=== PATIENT | female | born 2000 | race Caucasian/White ===

== ENCOUNTER 2020-08-08 16:45 | Outpatient (REF) | payer OTHER, SELFPAY | END 2020-08-08 16:46 | disposition home or self-care (01) | LOC: HO.LAB 16:45 | PROVIDERS: Visit Provider Internal Medicine | DX: Z20.828 Contact with and (suspected) exposure to other viral communicable diseases (principal) | CPT/HCPCS: C9803; U0003 ==

== ENCOUNTER 2020-08-13 17:05 | Outpatient (REF) | payer OTHER, SELFPAY | END 2020-08-13 17:06 | disposition home or self-care (01) | LOC: HO.LAB 17:05 | PROVIDERS: Visit Provider Internal Medicine | DX: Z20.822 Contact with and (suspected) exposure to COVID-19 (principal) | CPT/HCPCS: 36415; C9803; U0003 ==

== ENCOUNTER 2023-04-03 11:03 | Outpatient (REF) | payer MEDICAID, SELFPAY ==
[2023-04-03 18:52] LABS: CT PCR NOT DETECTED (Not Detect.); NG PCR NOT DETECTED (Not Detect.)
[2023-04-04 04:10] LABS: Syphilis Screen Nonreactive (Nonreactive)
[2023-04-04 04:31] LABS: HIV AB/AG Nonreactive (Nonreactive); HIV Num 1 0.07 S/CO (0.00-0.99); ~HepC Num1 0.09 S/CO (0.00-0.79); ~Hepatitis C Antibody Nonreactive (Nonreactive)
== END 2023-04-03 11:04 | disposition home or self-care (01) ==
LOC: HO.HHCL 11:03
PROVIDERS: Visit Provider General Practice
DX: Z13.89 Encounter for screening for other disorder (principal)
CPT/HCPCS: 0353U; 86780; 86803; 87389

== ENCOUNTER 2024-05-04 15:04 | Outpatient (REF) | payer MEDICAID, SELFPAY ==
[2024-05-04 16:24] LABS: MANUAL DIFF FLAG NO
[2024-05-04 16:28] LABS: Hematocrit 42.8 % (37.0-47.0); Hemoglobin 14.2 g/dl (12.0-16.0); Mean Corpuscular Hemoglobin 32.7 pg (27.0-33.0); Mean Corpuscular Volume 98.6 fL (80.0-98.0); Red Blood Count 4.34 X10*6/uL (4.20-5.50); White Blood Count 6.7 X10*3/uL (4.8-10.8)
[2024-05-04 16:29] LABS: Basophils Percent Auto 0.4 % (0-2); Eosinophils Absolute Auto 0.1 X10*3/uL (0.0-0.4); Eosinophils Percent Auto 1.9 % (0-4); Imm Gran Abs Auto 0.02 X10*3/uL (0.00-0.03); Imm Gran Pct Auto 0.3 % (0.0-0.4); Lymphocytes Absolute Auto 2.1 X10*3/uL (1.2-4.9); Lymphocytes Percent Auto 31.5 % (20-40); Mean Corpuscular HGB Conc 33.2 g/dl (31.0-35.0); Mean Platelet Volume 10.1 fL (9.4-12.3); Monocytes Absolute Auto 0.5 X10*3/uL (0.1-1.2); Neutrophils Absolute Auto 3.9 x10*3/uL (2.0-8.3); Neutrophils Percent Auto 58.9 % (45-73); Platelet Count 232 X10*3/uL (160-400); Red Cell Distribution Width 12.8 % (11.0-16.0)
[2024-05-04 17:09] LABS: TSH reflex Free T4 1.13 uIU/mL (0.32-4.0)
== END 2024-05-04 15:05 | disposition home or self-care (01) ==
LOC: HO.HHCL 15:04
PROVIDERS: Visit Provider General Practice
DX: R40.0 Somnolence (principal)
CPT/HCPCS: 36415; 84443; 85025

== ENCOUNTER 2025-03-13 11:43 | Outpatient (REF) | payer MEDICAID, SELFPAY ==
--- OUTSIDE RECORDS SUMMARY | 2025-03-13 12:31 | XMS_ITS | Clinical Summary ---
Author Organization [facility] Address [address] [place] [phone] Phone Care Team Providers Care Hide Mill Man Name Role Phone Arthur CityGladis boston YOLY Primary Care Provider [phone] Immunizations Immunization Administration Dates Next Due DTaP 5 12/19/2004, 1,05/19/2000,02/13/2000 ,1999 H1N1 06/22/2009 Hep B, ped/adol 08/07/2000,1999,1999 Hib (PRP-T) 03/29/2001,05/19/2000,02/13/2000 ,1999 IPV 12/19/2004,05/19/2000,02/13/2000 ,1999 Influenza, injectable, trivalent 06/09/2008 MMR 01/05/2004,10/30/2000 Pneumococcal Conjugate 10/30/2000,08/07/2000,05/2000 Varicella 06/09/2008,10/30/2000 Social History Tobacco Use Types Packs/Day Years Used Date Smoking Tobacco: Never Assessed Comments Unknown Sex and Gender Information Value Date Recorded Sex Assigned at Not on file Legal Sex Female 4:42 PM EDT Gender Identity Not on file Sexual Orientation Not on file Plan of Treatment Health Maintenance Due Date Last Done Comments DTaP,Tdap,and Td Vaccines (6 - Tdap) 10/07/2010 12/19/2004, 03/29/2001, 05/19/2000, Additional history exists HPV Vaccines (1 - 3-dose series) 10/07/2014 COVID-19 Vaccine ( season) 2024 Influenza Vaccines (#1) 2025 06/09/2008 Hepatitis B Vaccines Completed 08/07/2000, 1999, 1999 Pneumococcal Vaccine Completed 10/30/2000, 08/07/2000, 05/19/2000 HIB Vaccines Completed 03/29/2001, 05/10, 02/13/2000, Additional history exists MMR Vaccines Completed 01/05/2004, 10/30/2000 IPV Vaccines Completed 12/19/2004, 05/10, 02/13/2000, Additional history exists Varicella Vaccines Completed 06/09/2008, 10/30/2000 Hepatitis A Vaccines Aged Out No long er eligible based on patient's age to complete this topic Men B Vaccine Aged Out No longer elig ible based on patient's age to complete this topic Meningococcal Vaccine Aged Out No ivelisse jenna eligible based on patient's age to complete this topic Care Teams Hide Mill Man Relationship Specialty Start Date End Date Gladis Pitts NP PCP - General 03/20/17
[2025-03-13 13:44] LABS: Hematocrit 39.7 % (37.0-47.0); Hemoglobin 13.0 g/dl (12.0-16.0); Mean Corpuscular HGB Conc 32.7 g/dl (31.0-35.0); Mean Corpuscular Hemoglobin 32.1 pg (27.0-33.0); Mean Corpuscular Volume 98.0 fL (80.0-98.0); NRBC Abs Auto 0.000 X10*3/uL (0.0-0.012); NRBC Pct Auto 0.0 /100WBC (0.0-0.2); Platelet Count 229 X10*3/uL (160-400); Red Blood Count 4.05 X10*6/uL (4.20-5.50); White Blood Count 7.6 X10*3/uL (4.8-10.8)
[2025-03-15 22:19] LABS: C. trachomatis RNA TMA NOT DETECTED (NOT DETECTED); N. gonorrhoeae RNA TMA NOT DETECTED (NOT DETECTED); Trichomonas (NAAT) NOT DETECTED (NOT DETECTED)
== END 2025-03-13 11:44 | disposition home or self-care (01) ==
LOC: HO.HHCL 11:43
PROVIDERS: PCP General Practice; Visit Provider Advanced Practice Midwife
DX: Z11.3 Encounter for screening for infections with a predominantly sexual mode of transmission (principal); Z12.4 Encounter for screening for malignant neoplasm of cervix; Z11.8 Encounter for screening for other infectious and parasitic diseases; N93.9 Abnormal uterine and vaginal bleeding, unspecified
CPT/HCPCS: 36415; 85027; 87491; 87591; 87661; 88175

== ENCOUNTER 2025-03-29 11:54 | Outpatient (REF) | payer MEDICAID, SELFPAY ==
--- OUTSIDE RECORDS SUMMARY | 2025-03-29 11:00 | XMS_ITS | Encounter Summary ---
Author Organization [employer] Address [address] [place] [address] Care Team Providers Care Boom Worker Name Role Phone Tragn Mejia MD Primary Care Provider [phone] Reason for Visit * Reason Comments Follow-up Encounter Details Date Type Department Care Team ([facility] Contact Info) Description 03/29/2025 11:00 AM EDT Office Visit [facility] [address], [place] [phone] Trang Mejia MD [address], [place] [phone] Screening examination for STI (Primary Dx); Dietary counseling; Exercise counseling; Overweight Social History Tobacco Use Types Packs/Day Years Used Date Smoking Tobacco: Every Day Cigarettes 0.3 10.6 Started: 08/10/2014 Passive Smoke Exposure: Current Smokeless Tobacco: Never Tobacco Cessation:Ready to Q uit: Not Asked; Counseling Given: Not Answered Comments:Smokes 1/4 to 1/2 pack a day Alcohol Use Standard Drinks/Week Comments Never 0 (1 standard drink = 0.6 oz pur e alcohol) Depression Answer Date Recorded Patient Health Questionnaire-9 Score 0 03/29/2025 Patient Health Questionnaire-9 Score 0 03/29/2025 Last PHQ-9: Questionnaire Data Not on file 0 03/29/2025 Housing Stability Answer Date Recorded What is your housing situation today? I have ginette [place] 05/04/[address] you li ve. Do you have problems with any of the following? I am not sure 05/04/2024 Food Insecurity Answer Date Recorded Within the past 12 months, y ou worried that your food would run out before you got money to buy more: Never True 05/04/2024 Within the past 12 months,th e food you bought just didn't last and you didn't have enough money to get more: Never True Transportation Answer Date Recorded In the past 12 months, has l ack of transportation kept you from medical appts, meetings, work or from getting things needed for daily living? Yes, it has kept me from medical appointments or getting medications.;No 05/04/2024 Utilities Answer Date Recorded In the past 12 months, has t he [employer], gas, oil or water [employer] threatened to shut off services in your home? No 05/04/2024 Depression Answer Date Recorded Patient Health Questionnaire-2 Score 0 03/29/2025 Internet Access Answer Date Recorded Internet Access Q1 Yes 05/04/2024 Internet Access Q2 Not on file 05/04/2024 Comments No Sex and Gender Information Value Date Recorded Sex Assigned at Female 06/09/2022 10:22 AM EDT Legal Sex Female 10:22 AM EDT Gender Identity Female 06/09/2022 10:22 AM EDT Sexual Orientation Straight 06/09/2022 10 :22 AM EDT documented as of this encounter Last Filed Vital Signs Vital Sign Reading Time Taken Comments Blood Pressure 120/80 03/29/2025 11:39 AM EDT Pulse 78 03/29/2025 11:39 AM EDT Temperature 36.1 C (97 F) 03/29/2025 11:39 AM EDT Respiratory Rate 18 03/29/2025 11:39 AM EDT Oxygen Saturation - - Inhaled Oxygen Concentration - - Weight 82.8 kg (182 lb 9.6 oz) 03/29/2025 11:39 AM EDT Height 166.4 cm (5' 5.5 ) 03/29/2025 11:39 AM ED T Body Mass Index 29.92 03/29/2025 11:39 AM EDT documented in this encounter Functional Status * Over the past 2 weeks, how often have you been bothered by any of the following problems? Question Answer Date of Assessment Author Patient Health Questionnaire-2 Score 0 03/29/2025 11:40 AM EDT Jacey Rose MA * Little interest or pleasure in doing things Answer Date of Assessment Author Not at all 03/29/2025 11:40 AM EDT Jacey Huertas MA * Feeling down, depressed, or hopeless Answer Date of Assessment Author Not at all 03/29/2025 11:40 AM EDT Jacey Huertas MA * Trouble falling or staying asleep, or sleeping too much Answer Date of Assessment Author Not at all 03/29/2025 11:40 AM EDT Jacey Huertas MA * Feeling tired or having little energy Answer Date of Assessment Author Not at all 03/29/2025 11:40 AM EDT Jacey Huertas MA * Poor appetite or overeating Answer Date of Assessment Author Not at all 03/29/2025 11:40 AM EDT Jacey Huertas MA * Feeling bad about yourself - or that you are a failure or have let yourself or your family down Answer Date of Assessment Author Not at all 03/29/2025 11:40 AM EDT Jacey Huertas MA * Trouble concentrating on things, such as reading the newspaper or watching television Answer Date of Assessment Author Not at all 03/29/2025 11:40 AM Jacey Mckenna MA * Moving or speaking so slowly that other people could have noticed? Or the opposite - being so fidgety or restless that you have been moving around a lot more than usual. Answer Date of Assessment Author Not at all 03/29/2025 11:40 AM EDJacey Martell MA * Thoughts that you would be better off or hurting yourself in some way Answer Date of Assessment Author Not at all 03/29/2025 11:40 AM Jacey Mckenna MA * Patient Health Questionnaire-9 Score Answer Date of Assessment Author 0 03/29/2025 11:40 AM Jacey Mckenna MA * Over the last 2 weeks, how often have you been bothered by any of the following problems? Question Answer Date of Assessment Author Feeling nervous, anxious, or on edge 0 03/29/2025 11:40 AM EDT Jacey Gray MA Not being able to stop or control worrying 0 03/29/2025 11:40 AM EDT Jacey Gray MA Worrying too much about different things 0 03/29/2025 11:40 AM EDT Jacey Gray MA Trouble relaxing 0 03/29/2025 11:40 AM EDT Jacey Gray MA Being so restless that it is hard to sit still 0 03/29/2025 11:40 AM EDT Jacey Gray MA Becoming easily annoyed or irritable 0 03/29/2025 11:40 AM EDT Jacey Gray MA Feeling afraid as if something awful might happen 0 03/29/2025 11:40 AM EDT Jacey Zhang MA LEONOR-7 Total Score 0 03/29/2025 11:40 AM EDT Jacey Gray MA documented as of this encounter Progress Notes * Trang Mejia MD - 03/29/2025 11:00 AM EDT SUBJECTIVE: Ludy Jones is a 24 y.o. female currently using Nexplanon for contraception, who presentsfor chronic disease management. Denies recent illness, ER visit, or hospitalization. 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) 03/31/2023 Mood disorder ([facility]) 12/27/2013 Overweight 08/26/2013 Surgical History[1] Social History Social History Narrative Social: lives with mother, smokes 1 ppd and started smoking at age 13, smoking one ppd by age 15; now 1/4 to 1/2 pack per day denies alcohol and illicit drug use Working at [employer] Review of Systems Constitutional: Negative. Respiratory: Negative. Cardiovascular: Negative. Gastrointestinal: Negative. Genitourinary: Positive for menstrual problem. Musculoskeletal: Negative. Skin: Negative. OBJECTIVE: Vitals: 03/29/25 1139 BP: 120/80 BP Location: Left arm Patient Position: Sitting BP Cuff Size: Adult Pulse: 78 Resp: 18 Temp: 97 ??F (36.1 ??C) TempSrc: Oral Weight: 182 lb 9.6 oz (82.8 kg) Height: 5' 5.5 (1.664 m) Physical Exam Vitals reviewed. Constitutional: Appearance: Normal appearance. She is well-developed. HENT: Head: Normocephalic and atraumatic. Nose: Nose normal. Eyes: Pupils: Pupils are equal, round, and reactive to light. Cardiovascular: Rate and Rhythm: Normal rate and regular rhythm. Heart sounds: Normal heart sounds. Pulmonary: Effort: Pulmonary effort is normal. Breath sounds: Normal breath sounds. Abdominal: Palpations: Abdomen is soft. Musculoskeletal: Cervical back: Normal range of motion and neck supple. Neurological: General: No focal deficit present. Mental Status: She is alert. Psychiatric: Mood and Affect: Mood normal. ASSESSMENT/PLAN Problem List Items Addressed This Visit Overweight Relevant Medications norethindrone-ethinyl estradiol (08/29) 1-20 MG-MCG tablet Other Relevant Orders Lipid Panel, Standard Other Visit Diagnoses Screening examination for STI - Primary Relevant Medications metroNIDAZOLE (Flagyl) 500 MG tablet Other Relevant Orders RPR (Monitor) with Reflex to Titer HIV-1/2 Antigen and Antibodies, Fourth Generation, with Reflexes Hepatitis C Antibody with Reflex to HCV, RNA, Quantitative, Real-Time PCR Dietary counseling Relevant Medications norethindrone-ethinyl estradiol (08/29) 1-20 MG-MCG tablet Exercise counseling Relevant Medications norethindrone-ethinyl estradiol (08/29) 1-20 MG-MCG tablet Follow Up: 6- 12 months or sooner prn Allergies[2] Current Medications[3] Kyrgyz Translation: Patient is bilingual and declines translation services [1] History reviewed. No pertinent surgical history. [2] No Known Allergies [3] Current Outpatient Medications: etonogestrel-eluting (Nexplanon) 68 mg contraceptive implant, Replaced 10/15/2020, Disp: , Rfl: metroNIDAZOLE (Flagyl) 500 MG tablet, Take 1 tablet (500 mg) by mouth 2 times daily for 7 days., Disp: 14 tablet, Rfl: 0 norethindrone-ethinyl estradiol (08/29) 1-20 MG-MCG tablet, 1 tab by Oral route every day, Disp: 84 tablet, Rfl: 3 documented in this encounter Plan of Treatment Scheduled Orders Name Type Priority Associated Diagnoses Orde r Schedule RPR (Monitor) with Reflex to Titer Lab Routine Screening examination for STI Expected: 03/29/2025, Expires: 03/29/2026 HIV-1/2 Antigen and Antibodies, Fourth Generation, with Reflexes Lab Routine Screening examination for STI Expected: 03/29/2025 (Approximate), Expires: 03/29/2026 Hepatitis C Antibody with Reflex to HCV, RNA, Quantitative, Real-Time PCR Lab Routine Screening examination for STI Expected: 03/29/2025, Expires: 03/29/2026 Lipid Panel, Standard Lab Routine Overweight Expected: 03/29/2025 (Approximate), Expires: 03/29/2026 documented as of this encounter Visit Diagnoses Diagnosis Screening examination for STI- Primary Dietary counseling Dietary surveillance and counseling Exercise counseling Overweight documented in this encounter Additional Health Concerns Assessment Noted Time PHQ-9 Depression Total Score: 0 03/29/20 25 11:40 AM EDT documented as of this encounter Care Teams Boom Worker Relationship Specialty Start Date End Date Trang Mejia MD [address] [place] [address] PCP - General Family Medicine 10/16/20 documented as of this encounter
--- OUTSIDE RECORDS SUMMARY | 2025-03-29 13:05 | XMS_ITS | Clinical Summary ---
Author Organization [facility] Address [address] [place] [phone] Phone Care Team Providers Care Garage Door Technician Name Role Phone GisselleGladis boston YOLY Primary Care Provider [phone] Immunizations Immunization Administration Dates Next Due DTaP [...] topic Meningococcal Vaccine Aged Out No ivelisse jenan eligible based on patient's age to complete this topic Care Teams Garage Door Technician Relationship Specialty Start Date End Date Gladis Pitts NP PCP - General 03/20/17
[2025-03-29 15:07] LABS: Cholesterol 142 mg/dL (<200); HDL Cholesterol 66 mg/dL (>40); Triglycerides 38 mg/dL (<150)
[2025-03-30 08:19] LABS: HIV Num 1 0.05 S/CO (0.00-0.99); ~HepC Num1 0.13 S/CO (0.00-0.79); ~Hepatitis C Antibody Nonreactive (Nonreactive)
== END 2025-03-29 11:55 | disposition home or self-care (01) ==
LOC: HO.HHCL 11:54
PROVIDERS: PCP General Practice; Visit Provider General Practice
DX: Z11.3 Encounter for screening for infections with a predominantly sexual mode of transmission (principal); Z11.4 Encounter for screening for human immunodeficiency virus [HIV]; Z11.59 Encounter for screening for other viral diseases; E66.3 Overweight
CPT/HCPCS: 36415; 80061; 86592; 86803; 87389